=== PATIENT | female | born 1980 | race Caucasian/White ===

== ENCOUNTER → 2017-01-07 | Outpatient (CLI) | payer BC | LOC: SUN.DIA 14:06 | DX: O24.419 Gestational diabetes mellitus in pregnancy, unspecified control (principal); Z3A.29 29 weeks gestation of pregnancy; Z71.3 Dietary counseling and surveillance | CPT/HCPCS: G0108 ==

== ENCOUNTER → 2017-01-20 | Outpatient (CLI) | payer BC | LOC: SUN.DIA 07:56 | DX: O24.419 Gestational diabetes mellitus in pregnancy, unspecified control (principal); Z3A.31 31 weeks gestation of pregnancy; Z71.3 Dietary counseling and surveillance | CPT/HCPCS: G0108 ==

== ENCOUNTER → 2017-02-10 | Outpatient (CLI) | payer BC | LOC: SUN.DIA 10:42 | DX: O24.419 Gestational diabetes mellitus in pregnancy, unspecified control (principal); Z3A.34 34 weeks gestation of pregnancy; Z71.3 Dietary counseling and surveillance | CPT/HCPCS: G0108 ==

== ENCOUNTER → 2017-02-16 | Outpatient (CLI) | payer BC | LOC: SUN.DIA 08:39 | DX: O24.419 Gestational diabetes mellitus in pregnancy, unspecified control (principal); Z3A.35 35 weeks gestation of pregnancy; Z71.3 Dietary counseling and surveillance | CPT/HCPCS: G0108 ==

== ENCOUNTER 2017-03-21 23:25 | Inpatient (IN) | payer BC ==
[~2017-03-21] VITALS: Ht 162.6 cm; Wt 81.8 kg
[2017-03-22] VITALS (18 sets, daily range): BP systolic 103–143; BP diastolic 54–84; PULSE 84–144; TEMP 98–99.2
[2017-03-22 00:55] LABS: HEMATOCRIT 40.1 % (37.0-47.0); HEMOGLOBIN 14.5 g/dl (12.5-16.0); MEAN CELL VOLUME 93 fl (80.0-100.0); MEAN CORPUSCULAR HEMOGLOBIN 34 pg (27.0-31.0); MEAN CORPUSCULAR HGB CONC 36 g/dl (33.0-37.0); MEAN PLATELET VOLUME 11.1 fl (7.4-10.4); PLATELET COUNT 288 K/mm3 (130-400); RED BLOOD COUNT 4.33 M/mm3 (4.10-5.30)
[2017-03-22] MEDS ORDERED: PRENATAL PO (00:59)
[2017-03-22 01:05] LABS: ADD PATHOLOGY DIFF REVIEW NO; WHITE BLOOD COUNT 26.7 K/mm3 (4.8-10.8)
[2017-03-22 01:15] LABS: BAND 12 % (0-10); EOSINOPHIL 1 % (0-4); LYMPHOCYTE 9 % (20.0-51.0); NEUTROPHILS 74 % (42.0-75.2); TOTAL CELLS COUNTED 100
[2017-03-22 01:16] LABS: PLATELET ESTIMATE NORMAL (NORMAL)
[2017-03-23] VITALS: BP 118/74; PULSE 81; TEMP 98.4
[2017-03-23 04:00] VITALS: BP 112/74; PULSE 102; TEMP 98
[2017-03-23] MEDS ORDERED: IBU600 MG PO (07:40)
[2017-03-23 08:45] VITALS: BP 115/65; PULSE 92; TEMP 98.4
== END 2017-03-23 16:15 | disposition home or self-care (01) | DRG 775 ==
LOC: LDRO → LDR 23:43 → OB 03-22 10:00
PROVIDERS: Obstetrics & Gynecology
PROC: 10E0XZZ Delivery of Products of Conception, External Approach (ICD-10-PCS; principal; 2017-03-21)
PROC: 0KQM0ZZ Repair Perineum Muscle, Open Approach (ICD-10-PCS; 2017-03-21)
DX: O24.420 Gestational diabetes mellitus in childbirth, diet controlled (principal); O36.0130 Maternal care for anti-D [Rh] antibodies, third trimester, not applicable or unspecified; O70.1 Second degree perineal laceration during delivery; O69.81X0 Labor and delivery complicated by cord around neck, without compression, not applicable or unspecified; Z3A.39 39 weeks gestation of pregnancy; Z37.0 Single live birth
CPT/HCPCS: J2791; J7120

== ENCOUNTER → 2019-09-21 | Outpatient (CLI) | payer BC ==
[~2019-09-21] MED LIST: IBU600 MG PO; MOTRIN 600600 MG/TAB PO; NUVA RING; PRENATAL PO
== END ==
LOC: DIA.ED 11:45
DX: O24.419 Gestational diabetes mellitus in pregnancy, unspecified control (principal)
CPT/HCPCS: G0108

== ENCOUNTER 2019-10-21 05:28 | Inpatient (IN) | payer BC ==
[~2019-10-21] VITALS: Ht 162.6 cm; Wt 81.8 kg
[2019-10-21] VITALS (15 sets, daily range): BP systolic 105–139; BP diastolic 59–81; PULSE 80–130; TEMP 98–98.7
[~2019-10-21 05:28] MED LIST changes: -MOTRIN 600600 MG/TAB PO
--- NOTE | 2019-10-21 05:40 | NUR ---
Patient ambulatory to unit accompanied by spouse for regular painful contractions that started around 2300 and got stronger around 0500. Patient denies any leaking of fluid or vaginal bleeding and states baby has been active. Patient resting in bed. FHR and contraction monitors placed and explained. SVE 5-6/100/-1. SROM with moderate amount of clear fluid noted at 0540. VS stable. Assessment completed. Dr. Brian called and orders received
[2019-10-21 06:02] LABS: BASO % 0.2 % (0.0-2.0); EOS % 0.3 % (0-4.0); GRAN # 9.8 (1.4-6.5); GRAN % 68.4 % (42.2-75.2); HEMATOCRIT 41.1 % (37.0-47.0); HEMOGLOBIN 14.7 g/dl (12.5-16.0); LYMPH # 3.2 (1.2-3.4); LYMPH % 22.5 % (20.0-51.0); MEAN CELL VOLUME 94 fl (80.0-100.0); MEAN CORPUSCULAR HEMOGLOBIN 34 pg (27.0-31.0); MEAN CORPUSCULAR HGB CONC 36 g/dl (33.0-37.0); MEAN PLATELET VOLUME 10.2 fl (7.4-10.4); MONO # 1.1 (0.1-0.6); MONO % 7.4 % (1.7-9.3); PLATELET COUNT 244 K/mm3 (130-400); RED BLOOD COUNT 4.39 M/mm3 (4.10-5.30); REDCELL DISTRIBUTION WIDTH-CV 13.1 % (11.5-14.5)
--- NOTE | 2019-10-21 06:25 | NUR ---
Pt requesting epidural. Chris LEIGH here and called. 0630:SVE: 7-8100/-1. 0632:Dr Garcia called and updated. She will be on her way to hospital soon and will call if needed sooner. 0636:Chris [employer] here and pt repositioned to sitting up on bed. 0640:Single shot given, pt tolerated well. see anesthesia notes. 0650:SVE, /0. Dr garcia here. Reviews monitor strip and updated on sve.
--- NOTE | 2019-10-21 07:45 | NUR ---
SVE: complete +1. Dr Roles here and updated. Pt unable to feel contractions and pressure. Will attempt practice pushes. Pt prepped. Begins pushing. Maternal pulse showing 130bpm. Pulse ox placed, 110's bpm noted. Straight cath used, 50ml urine. 0810:Dr Roles here for delivery. Pt continues to push with contractions. 0822: of infants head and shoulders. Infant to mothers chest and in care of Chris MARLEY. 0826:Spontaneous delivery of placenta. Intact perinuem. LR with Pitocin infusing at 333ml/hr without difficulty. Fundus firm, moderate amount of free flow noted at first, then decreases and is WNL.
[2019-10-22 08:00] VITALS: BP 115/69; PULSE 90; TEMP 98.5
[2019-10-22] MEDS ORDERED: MOTRIN 600600 MG/TAB PO (09:55)
--- NOTE | 2019-10-22 13:30 | NUR ---
1330-Reviewed discharge instructions with patient. Instructed to call [facility] and schedule 6week visit. Educated on when to call or retunr to hospital. Verbalized understanding. 1340-Ambulatory off unit with spouse and infant.
== END 2019-10-22 13:40 | disposition home or self-care (01) | DRG 807 ==
LOC: LDRO 05:28 → LDR 05:49 → OB 11:20
PROVIDERS: ADMIT Obstetrics & Gynecology
PROC: 10E0XZZ Delivery of Products of Conception, External Approach (ICD-10-PCS; principal; 2019-10-21)
DX: O24.420 Gestational diabetes mellitus in childbirth, diet controlled (principal); Z37.0 Single live birth; Z3A.39 39 weeks gestation of pregnancy
CPT/HCPCS: J2590; J2795; J7120